=== PATIENT | male | born 1975 | race African-American/Black ===

== ENCOUNTER 2016-06-28 11:36 | Emergency (ER) | payer SELFPAY ==
[2016-06-28 12:08] VITALS: TEMP 98.6; BMI 27.7
--- NOTE | 2016-06-28 13:01 | DIRPT ---
CLINICAL DATA: Pain x3 weeks, no trauma EXAM: LEFT SHOULDER - 2+ VIEW COMPARISON: None. FINDINGS: There is no evidence of fracture or dislocation. There is no evidence of arthropathy or other focal bone abnormality. Soft tissues are unremarkable. IMPRESSION: Negative. Electronically Signed By: Luis Hines M.D. On: 06/28/2016 12:59
--- NOTE | 2016-06-28 13:56 | EDPRACDOC ---
- General Information Chief Complaint: Shoulder Pain Stated Complaint: LT SHOULDER PAIN NO RECENT INJURY Time Seen by Provider: 06/28/16 13:44 Mode of Arrival: Car Home Medications: Home Medications Cyclobenzaprine HCl [Flexeril] 10 mg PO TID #21 tab 06/28/16 Meloxicam [Mobic] 7.5 mg PO BID #20 tab 06/28/16 Allergies/Adverse Reactions: Allergies Allergy/AdvReac Type Severity Reaction Status Date / Time No Known Allergies Allergy Verified 06/28/16 12:08 - History of Present Illness Onset: 3 WEEKS HPI: PT PRESENTS TODAY WITH LEFT SHOULDER PAIN X 3 WEEKS. NO APPARENT INJURY. 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 DENIES FEVER. STATES PAIN WORSE WITH LIFTING AND ALSO SHARP PAINS RADIATE DOWN ARM. Description: Reports: With Use Location: Reports: Left, Anterior Circumstances: Reports: None Relevant History: Reports: None Pain Severity: Moderate Associated Signs & Symptoms: Reports: Neck pain, Arm pain ED Past Medical History - History Reviewed Yes Nurses notes reviewed and agree except as marked EDM Review of Systems - Review of Systems ROS Negative Except as Marked: Yes All systems reviewed and were negative except as marked Constitutional: No Symptoms Reported Respiratory: No Symptoms Reported Cardiovascular: No Symptoms Reported Gastrointestinal: No Symptoms Reported Neurological: No Symptoms Reported Musculoskeletal: Shoulder Integumentary: No Symptoms Reported - Physical Exam Constitutional: Alert (Awake), No apparent distress Oriented to: Time, Person, Place Last recorded Vital Signs: Last Vital Signs Temp 98.6 F 06/28/16 12:06 Pulse 77 06/28/16 12:06 Resp 18 06/28/16 12:06 BP 143/92 06/28/16 12:06 Pulse Ox 99 06/28/16 12:06 Oxygen Pulse Oxygen Saturation 99 O2 Device Room Air Oxygen Flow Rate Fraction of Inspired Oxygen ( FIO2) - HEENT Head: Normal Eye Exam: Normal Neck: Midline, Paraspinal Tenderness - Respiratory/Cardiovascular Respiratory: Normal - CTA Cardiovascular: Normal - GI Palpation: Normal Tenderness: Non tender - Musculoskeletal Back: Normal Extremities: Other (PAIN WITH PASSIVE ROM OF RIGHT SHOULDER; NO APPARENT DEFORMITY/SWELLING/BRUISING/ERYTHEMA; DISTAL PMS INTACT;) - Integumentary Skin: Normal Lymphatics: Normal - Neurologic Cerebellar: Normal Mood Description: Normal Thought: Coherent Perception: Normal ED Shoulder Problem Exam - Musculoskeletal Clavicle: Normal Shoulder: Limited ROM Drop arm test: Negative Impingement test: Negative Arm: Normal Distal Function/Circulation: Normal Decision Time to Discharge: 13:55 - Departure Disposition: Home Condition: Good Final Diagnosis: Shoulder pain, left Qualifiers: Chronicity: acute Qualified Code(s): M25.512 - Pain in left shoulder Instructions: RICE Therapy (ED) Education/Counseling Given To: Patient Education/Counseling Given Regarding: Diagnosis, Treatment, Follow Up Referrals: None,No Provider [Primary Care Provider] - One Week BREANN RIOS [NonStaff] - One Week Joaquim Olivares MD [Staff Physician] - One Week Prescriptions: New Cyclobenzaprine HCl [Flexeril] 10 mg PO TID #21 tab Meloxicam [Mobic] 7.5 mg PO BID #20 tab Additional Instructions: TRY TO AVOID HEAVY LIFTING. IF SYMPTOMS PERSIST, FOLLOW UP WITH PCP/ORTHO FOR POSSIBLE NEED OF OUTPATIENT MRI.
[2016-06-28 15:02] VITALS: BP 136/84; PULSE 74
== END 2016-06-28 14:14 | disposition home or self-care (01) ==
LOC: EDMC 11:36
DX: M25.512 Pain in left shoulder (principal)
CPT/HCPCS: 99282